=== PATIENT | female | born 1945 | race Caucasian/White ===

== ENCOUNTER 2022-07-16 13:00 | Emergency (ER) | payer MEDICARE, OTHER ==
[2022-07-16] MEDS ORDERED: LORazepam INJ 2 MG/ML (ATIVAN) VIAL IVP STA ×4 (13:08→17:02)
[2022-07-16] MEDS ORDERED: NS IV 1000 ML 1,000 ML IV STA ×2 (13:08→14:05)
[2022-07-16] MEDS ORDERED: HALOPERIDOL 5 MG/ML (HALDOL) VIAL IV STA (13:08)
[2022-07-16 13:21] LABS: BASOPHILS # (AUTO) 0.1 10^3/uL (0.0-0.1); BASOPHILS % (AUTO) 1 % (0-10); EOSINOPHILS # (AUTO) 0.2 10^3/uL (0.0-0.3); EOSINOPHILS % (AUTO) 2 % (0-10); HEMATOCRIT 39 % (35-52); HEMOGLOBIN 12.7 g/dL (11.5-16.0); LYMPHOCYTES # (AUTO) 2.9 10^3/uL (1.0-4.0); LYMPHOCYTES % (AUTO) 33 % (12-44); MEAN CORPUSCULAR HEMOGLOBIN 32 pg (25-34); MEAN CORPUSCULAR HGB CONC 33 g/dL (32-36); MEAN CORPUSCULAR VOLUME 100 fL (80-99); MEAN PLATELET VOLUME 9.3 fL (9.0-12.2); MONOCYTES # (AUTO) 0.6 10^3/uL (0.0-1.0); MONOCYTES % (AUTO) 6 % (0-12); NEUTROPHILS # (AUTO) 5.1 10^3/uL (1.8-7.8); NEUTROPHILS % (AUTO) 58 % (42-75); PLATELET COUNT 400 10^3/uL (130-400); WHITE BLOOD COUNT 8.8 10^3/uL (4.3-11.0)
[2022-07-16 13:29] LABS: BILIRUBIN,URINE NEGATIVE (NEGATIVE); CLARITY,URINE CLEAR; COLOR,URINE YELLOW; GLUCOSE, URINE (UA) NEGATIVE (NEGATIVE); KETONES,URINE NEGATIVE (NEGATIVE); LEUKOCYTE ESTERASE ,URINE NEGATIVE (NEGATIVE); NITRITE,URINE NEGATIVE (NEGATIVE); PH,URINE 5.5 (5-9); PROTEIN,URINE 1+ (NEGATIVE)
[2022-07-16 13:30] LABS: BACTERIA,URINE NEGATIVE /HPF
--- NOTE | 2022-07-16 13:40 | ED General ---
General Stated Complaint: AMS; SEIZURE-LIKE ACTIVITY; UNRESPONSIVE Source of Information: Patient, Spouse (S acting as an independent historian as the patient was agitated and confused and unable to answer questions coherently.) History of Present Illness Date Seen by Provider: Jul 16, 2022 Time Seen by Provider: 13:00 Initial Comments 77-year-old female presenting with EMS after having seizure-like activity witnessed by the . He states that they were watching television and he noticed that her breathing change and when he looked at her she was arching her back and rigid all over. He reports that lasted maybe up to a minute. She has had prior seizure activity approximately a year ago and they told told them at that time it was due to an infection. She had the infection treated but was not placed on any medicine for seizures. The reports that she does not take any chronic medications currently. 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 They most recently lived in [facility]. The states that they came back to [place] looking for some of her old classmates but were having difficulty finding ones that were still alive and in the area. He states that she did use marijuana but no other drugs. She does not routinely drink alcohol. He advised that she had been feeling fine prior to this episode this morning. Associated Systoms: No Cough, No Diaphoresis, No Fever/Chills, No Headaches, No Loss of Appetite, No Malaise, No Nausea/Vomiting; Seizure; No Shortness of Air, No Syncope, No Weakness Allergies and Home Medications Allergies Coded Allergies: No Known Drug Allergies (Unverified , 07/16/22) Patient Home Medication List Home Medication List Reviewed: Yes Review of Systems Review of Systems Constitutional: No chills, No fever EENTM: no symptoms reported Respiratory: no symptoms reported Cardiovascular: no symptoms reported Gastrointestinal: no symptoms reported Genitourinary: no symptoms reported Musculoskeletal: no symptoms reported Skin: no symptoms reported Psychiatric/Neurological: Seizure (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 oz. kg; BMI Method: General Appearance: Anxious, Other (Patient is anxious and agitated crying out repeatedly asking for someone to help her. She was flailing her arms and legs) Eyes: Bilateral Eye PERRL, Bilateral Eye EOMI HEENT: Pharynx Normal, Moist Mucous Membranes, Other (She has a chronic soft tissue swelling under the left mandible. Has been states that it has gotten bigger recently. It is not erythematous, warm, fluctuant, draining.) Neck: Full Range of Motion, Normal Inspection, Non Tender, Supple Respiratory: Chest Non Tender, Lungs Clear, Normal Breath Sounds Cardiovascular: Regular Rate, Rhythm, Normal Peripheral Pulses Gastrointestinal: Normal Bowel Sounds, No Pulsatile Mass, Non Tender, Soft Rectal: Deferred Extremity: Normal Capillary Refill, Normal Inspection, Normal Range of Motion, No Pedal Edema Neurologic/Psychiatric: Alert; No Oriented x3; Other (Patient is alert and moving all extremities. She repeatedly cries out asking for people to help her. At times she is screaming. Despite attempts at verbally redirecting her and reassuring her she continued to cry out and swinging her arms and legs) Skin: Normal Color, Warm/Dry Focused Exam Sepsis Stage: Ruled Out Reason for ruling out sepsis: No source Lactate Level 07/16/22 13:15: Lactic Acid Level 8.64*H 07/16/22 15:15: Lactic Acid Level 1.68 Time of Focused Exam: 15:00 Respiratory: Chest Non Tender, Lungs Clear, Normal Breath Sounds Cardiovascular: Regular Rate, Rhythm, No Murmur, Normal Peripheral Pulses Capillary Refill: Less Than 3 Seconds Peripheral Pulses: 2+ Dorsalis Pedis (R), 2+ Left Dors-Pedis (L), 2+ Radial Pulses (R), 2+ Radial Pulses (L) Skin: normal color, warm/dry Lactic Acid Level Laboratory Tests Test 07/16/22 13:15 07/16/22 15:15 Lactic Acid Level 8.64 MMOL/L (0.50-2.00) *H 1.68 MMOL/L (0.50-2.00) Within 3hrs of presentation: Admin fluids, Admin ABX, Blood cultures prior to ABX's, Focus exam, Lactate level Progress/Results/Core Measures Suspected Sepsis SIRS Temperature: Pulse: Respiratory Rate: Laboratory Tests 07/16/22 13:15: White Blood Count 8.8 Blood Pressure / Mean: 07/16/22 13:15: Lactic Acid Level 8.64*H 07/16/22 15:15: Lactic Acid Level 1.68 Laboratory Tests 07/16/22 13:15: Creatinine 0.74, Platelet Count 400, Total Bilirubin 0.3 Results/Orders Lab Results Laboratory Tests Test 07/16/22 13:08 07/16/22 13:15 07/16/22 14:55 07/16/22 15:15 Range/Units Urine Color YELLOW Urine Clarity CLEAR Urine pH 5.5 5-9 Urine Specific Taylor 1.025 H 1.016-1.022 Urine Protein 1+ H NEGATIVE Urine Glucose (UA) NEGATIVE NEGATIVE Urine Ketones NEGATIVE NEGATIVE Urine Nitrite NEGATIVE NEGATIVE Urine Bilirubin NEGATIVE NEGATIVE Urine Urobilinogen 0.2 < = 1.0 MG/DL Urine Leukocyte Esterase NEGATIVE NEGATIVE Urine RBC (Auto) NEGATIVE NEGATIVE Urine RBC NONE /HPF Urine WBC NONE /HPF Urine Squamous Epithelial Cells NONE /HPF Urine Crystals NONE /LPF Urine Bacteria NEGATIVE /HPF Urine Casts NONE /LPF Urine Mucus NEGATIVE /LPF Urine Culture Indicated NO Urine Opiates Screen NEGATIVE NEGATIVE Urine Oxycodone Screen NEGATIVE NEGATIVE Urine Methadone Screen NEGATIVE NEGATIVE Urine Propoxyphene Screen NEGATIVE NEGATIVE Urine Barbiturates Screen NEGATIVE NEGATIVE Ur Tricyclic Antidepressants Screen NEGATIVE NEGATIVE Urine Phencyclidine Screen NEGATIVE NEGATIVE Urine Amphetamines Screen NEGATIVE NEGATIVE Urine Methamphetamines Screen NEGATIVE NEGATIVE Urine Benzodiazepines Screen NEGATIVE NEGATIVE Urine Cocaine Screen NEGATIVE NEGATIVE Urine Cannabinoids Screen POSITIVE H NEGATIVE White Blood Count 8.8 4.3-11.0 10^3/uL Red Blood Count 3.92 3.80-5.11 10^6/uL Hemoglobin 12.7 11.5-16.0 g/dL Hematocrit 39 35-52 % Mean Corpuscular Volume 100 H 80-99 fL Mean Corpuscular Hemoglobin 32 25-34 pg Mean Corpuscular Hemoglobin Concent 33 32-36 g/dL Red Cell Distribution Width 13.1 10.0-14.5 % Platelet Count 400 130-400 10^3/uL Mean Platelet Volume 9.3 9.0-12.2 fL Immature Granulocyte % (Auto) 0 % Neutrophils (%) (Auto) 58 42-75 % Lymphocytes (%) (Auto) 33 12-44 % Monocytes (%) (Auto) 6 0-12 % Eosinophils (%) (Auto) 2 0-10 % Basophils (%) (Auto) 1 0-10 % Neutrophils # (Auto) 5.1 1.8-7.8 10^3/uL Lymphocytes # (Auto) 2.9 1.0-4.0 10^3/uL Monocytes # (Auto) 0.6 0.0-1.0 10^3/uL Eosinophils # (Auto) 0.2 0.0-0.3 10^3/uL Basophils # (Auto) 0.1 0.0-0.1 10^3/uL Immature Granulocyte # (Auto) 0.0 0.0-0.1 10^3/uL Sodium Level 140 135-145 MMOL/L Potassium Level 3.8 3.6-5.0 MMOL/L Chloride Level 104 98-107 MMOL/L Carbon Dioxide Level 17 L 21-32 MMOL/L Anion Gap 19 H 5-14 MMOL/L Blood Urea Nitrogen 5 L 7-18 MG/DL Creatinine 0.74 0.60-1.30 MG/DL Estimat Glomerular Filtration Rate 84 BUN/Creatinine Ratio 7 Glucose Level 203 H 70-105 MG/DL Lactic Acid Level 8.64 *H 1.68 0.50-2.00 MMOL/L Calcium Level 9.3 8.5-10.1 MG/DL Corrected Calcium 9.0 8.5-10.1 MG/DL Total Bilirubin 0.3 0.1-1.0 MG/DL Aspartate Amino Transf (AST/SGOT) 16 5-34 U/L Alanine Aminotransferase (ALT/SGPT) 9 0-55 U/L Alkaline Phosphatase 86 40-136 U/L Total Protein 7.5 6.4-8.2 GM/DL Albumin 4.4 3.2-4.5 GM/DL Salicylates Level 0.4 L 5.0-20.0 MG/DL Acetaminophen Level < 10 L 10-30 UG/ML Serum Alcohol < 10 <10 MG/DL Influenza Type A (RT-PCR) Not Detected Not Detecte Influenza Type B (RT-PCR) Not Detected Not Detecte SARS-CoV-2 RNA (RT-PCR) Not Detected Not Detecte My Orders Orders - MELANIA PERALES MD Ua Culture If Indicated (07/16/22 13:08) Cbc With Automated Diff (07/16/22 13:08) Comprehensive Metabolic Panel (07/16/22 13:08) Alcohol (07/16/22 13:08) Drug Screen Stat (Urine) (07/16/22 13:08) Acetaminophen (07/16/22 13:08) Salicylate (07/16/22 13:08) Ekg Tracing (07/16/22 13:08) Ed Iv/Invasive Line Start (07/16/22 13:08) Monitor-Rhythm Ecg Trace Only (07/16/22 13:08) Ct Head/Maxillofacial Wo (07/16/22 13:08) Straight Cath For Spec.-Adult (07/16/22 13:08) Ns Iv 1000 Ml (Sodium Chloride 0.9%) (07/16/22 13:08) Lorazepam Injection (Ativan Injection) (07/16/22 13:08) Haloperidol Injection (Haldol Injectio (07/16/22 13:08) Blood Culture (07/16/22 13:40) Lactic Acid Analyzer (07/16/22 13:40) Covid 19 Inhouse Test (07/16/22 13:40) Influenza A And B By Pcr (07/16/22 13:40) Isolation Central Supply Req (07/16/22 13:40) Lorazepam Injection (Ativan Injection) (07/16/22 13:40) Levetiracetam Injection (Keppra Injectio (07/16/22 13:40) Ceftriaxone 1 Gm Pre-Mix (Rocephin 1 Gm (07/16/22 14:05) Ns Iv 1000 Ml (Sodium Chloride 0.9%) (07/16/22 14:05) Lorazepam Injection (Ativan Injection) (07/16/22 14:15) Restraints: Behavioral/Violent .once (07/16/22 14:17) Renewal Ordered Needed (Q3h Ad Q3H (07/16/22 14:17) Lorazepam Injection (Ativan Injection) (07/16/22 17:02) Vital Signs/I&O 07/16/22 07/16/22 07/16/22 07/16/22 13:00 13:15 13:30 13:45 Temp 36.2 Pulse 104 Resp 18 20 20 21 B/P (MAP) 129/84 (99) Pulse Ox 95 O2 Delivery Room Air 07/16/22 07/16/22 07/16/22 07/16/22 14:00 14:15 14:30 14:45 Resp 20 19 20 18 07/16/22 07/16/22 07/16/22 07/16/22 15:00 15:15 15:30 15:45 Resp 20 22 20 22 Capillary Refill : Progress Note #1: Progress Note Agitation and non-cooperative with exam and treatment. Patient flailing her arms and legs and screaming out despite verbally redirecting her, having her try to calm her at her side and speaking to her. Chemical restraint with Ativan 2 mg and Haldol 5 mg IV helped some but was still screaming, agitated and uncooperative. Obtain peripheral IV access and send labs to look at complete blood count, comprehensive metabolic profile, alcohol, acetaminophen, salicylate, urinalysis, urine drug screen, CT head and maxillofacial to evaluate the brain and look for signs of intracranial hemorrhage or stroke or mass as well as looking for infection with her teeth or with the soft tissue swelling to the left mandible area. Straight cath urinalysis to obtain specimen. Administer normal saline 1 L IV fluid bolus for hydration. Keppra 500 mg IV for possible seizure activity. Patient continued to be agitated but was more calm after the Haldol 5 mg IV and Ativan 2 mg IV. An additional 1 mg of Ativan IV was administered to try and help with chemical restraint as she was still very agitated and moving all 4 extremities. This did make her a little more sedate and calm down so that she was not crying out but she was still not staying still. Harder to obtain CT scan of the head and maxillofacial an additional 2 mg of Ativan IV were ordered. Even with this patient had to have her head temporarily restrained to try and obtain the imaging. Progress Note #2: Time: 13:44 Progress Note Lab called with a lactic acid of 8.64. This is could be related to her seizure- like activity or possibly infection however I am not seeing any specific source of infection on exam or testing so far. Her complete blood count did not show an elevated white blood cell count. Her comprehensive metabolic profile did not have acute electrolyte abnormality to account for her symptoms she did have mild elevation of her glucose but unsure when she last ate or drink before having seizure activity and transport to the ED. She did not have signs of an infection on her urine it was slightly concentrated with a specific gravity 1.025. Her urine drug screen was positive for marijuana but no other illicit substances. Her levels for alcohol, salicylate, acetaminophen were all 0. Additional liter of normal saline IV fluid bolus was ordered along with Rocephin 1 g IV for her elevated lactic acid in case any of this was infection in her system. Will repeat draw her lactic acid after the fluids have infused. Attempted to obtain an electrocardiogram but patient was never able to lay still enough to get a tracing. Progress Note #3: Time: 15:07 Progress Note I reviewed the radiologist report of the CT scan of the head and maxillofacial area. They did not appreciate any acute fractures, intracranial hemorrhage, intracranial process. Patient continues to move her arms and legs on the bed. She is not crying out at this point. IV fluids and antibiotics were able to be infused. Progress Note #4: Time: 15:42 Progress Note Call placed to [facility] and spoke with NANCY Brandon. Patient information was provided to the transfer center contact the appropriate provider and will call back for provider to provider report. I have requested transfer to [facility] on the [facility] such as [facility] or [facility]. These would be the closest facilities to [place] that would have neurology and monitored care. As she may be having an unusual postictal phase and unsure about seizures will want to have neurology available. The repeat lactic acid was down to 1.68 with hydration. This makes it more likely that this was from seizure activity rather than infection as there is still no source for infection and she continues agitation despite multiple medications on board. 1609 Dr. Katarina Hope called from [facility] for the hospitalist service at [facility]. I reviewed the patient presentation and her history of prior seizure activity due to infection but not finding any infection today. CT scan of the head and face did not show any acute intracranial process. Her labs did not show acute abnormality on her complete blood count, comprehensive metabolic profile, urinalysis, urine drug screen, illicit drug screen to cause her to have seizure activity. With her still having continued altered mental status and agitation without a specific cause she was accepted for transfer to [facility] under Dr. Morris. 1700 additional dose of Ativan 2 mg IV was ordered as patient was rocking back and forth on the bed more. Awaiting EMS for transport to [facility] ter. 1815 EMS arrived to transport the patient to [facility] Diagnostic Imaging Diagonstic Imaging: CT Plain Films/CT/US/NM/MRI: head Comments NAME: OJ BOOKER REC#: [id number] PT STATUS: REG ER : 1945 PHYSICIAN: MELANIA PERALES MD ADMIT DATE: 07/16/22/ER FS Draft Date of Exam:07/16/22 CT HEAD/MAXILLOFACIAL WO PROCEDURE: CT head and maxillofacial without contrast. TECHNIQUE: Multiple contiguous axial images were obtained through the head and facial bones without the use of intravenous contrast. Auto Exposure Controls were utilized during the CT exam to meet ALARA standards for radiation dose reduction. INDICATION: Seizure with head and facial injuries. CT HEAD: Ventricles and sulci are appropriate for the patient's age. No sulcal effacement or midline shift is identified. No acute intra-axial or extra-axial hemorrhage is detected. Cisterns are patent. Visualized nasal sinuses are clear. IMPRESSION: No acute intracranial process is detected. CT FACE: Study is somewhat compromised by patient motion. Mandible is intact. Zygomatic arches are intact. The maxillary sinus matta, nasal bones and orbital matta appear to be intact. Paranasal sinuses are clear. IMPRESSION: No facial bone fracture is detected. Dictated on workstation # [id number] Dict: 07/16/22 1454 Trans: 07/16/22 1505 [facility] [id number] Interpreted by: ALLYN CARDENAS MD Electronically signed by: Reviewed: Reviewed by Me (I reviewed radiologist report at 1501) Critical Care Note Critical Care Total Time (minutes) 60 minutes Progress At least 60 minutes of critical care time was spent with the patient. Time excludes separately billable procedures. Time was spent trying to obtain history from patient and spouse and EMS, ordering tests and reviewing results, ordering interventions and reviewing response, discussions with consultants, discussion with the spouse since patient was incapacitated and not able to speak for herself, documentation in the chart. Patient was at risk of neurologic compromise and required immediate direct care to try and help stabilize the patient. Departure Impression Primary Impression: Elevated lactic acid level Additional Impressions: Agitation Altered mental status, unspecified Qualified Codes: R41.0 - Disorientation, unspecified Seizure-like activity Disposition: 02 XFER SHT-TRM HOSP Condition: Critical Transfer Transfer Reason: Exceeds level of care (Neurology and monitored care) Time Spoke to Accepting Phy: 16:09 Transfer Progress Notes 1609 Dr. Katarina Hope called from [facility] for the hospitalist service at [facility]. I reviewed the patient presentation and her history of prior seizure activity due to infection but not finding any infection today. CT scan of the head and face did not show any acute intracranial process. Her labs did not show acute abnormality on her complete blood count, comprehensive metabolic profile, urinalysis, urine drug screen, illicit drug screen to cause her to have seizure activity. With her still having continued altered mental status and agitation without a specific cause she was excepted for transfer to [facility] under Dr. Morris. Transfer Facility: [facility] Method of Transfer: EMS EMLANIA PERALES MD Jul 16, 2022 13:40
[2022-07-16 13:42] LABS: AMPHETAMINE SCREEN, URINE NEGATIVE (NEGATIVE); BARBITURATE SCREEN URINE NEGATIVE (NEGATIVE); BENZODIAZEPINES SCREEN URINE NEGATIVE (NEGATIVE); CANNABINOID SCREEN, URINE POSITIVE (NEGATIVE); COCAINE SCREEN URINE NEGATIVE (NEGATIVE); METHADONE STAT NEGATIVE (NEGATIVE); OPIATE SCREEN URINE NEGATIVE (NEGATIVE); OXYCODONE STAT NEGATIVE (NEGATIVE); PROPOXYPHENE STAT NEGATIVE (NEGATIVE); TRICYCLIC ANTIDEPRESSANTS SCRE NEGATIVE (NEGATIVE)
[2022-07-16 13:43] LABS: ACETAMINOPHEN < 10 UG/ML (10-30); ALANINE AMINOTRANSFERASE 9 U/L (0-55); ALBUMIN 4.4 GM/DL (3.2-4.5); ALKALINE PHOSPHATASE 86 U/L (40-136); BILIRUBIN,TOTAL 0.3 MG/DL (0.1-1.0); BUN/CREATININE RATIO 7; CALCIUM 9.3 MG/DL (8.5-10.1); CARBON DIOXIDE 17 MMOL/L (21-32); CHLORIDE 104 MMOL/L (98-107); CREATININE SERUM 0.74 MG/DL (0.60-1.30); GFR ESTIMATED 84; GLUCOSE 203 MG/DL (70-105); POTASSIUM 3.8 MMOL/L (3.6-5.0); SALICYLATE 0.4 MG/DL (5.0-20.0); SODIUM 140 MMOL/L (135-145); TOTAL PROTEIN 7.5 GM/DL (6.4-8.2)
[2022-07-16] MEDS ORDERED: cefTRIAXone 1 GM PRE-MIX 50 ML IV STA (14:05)
--- NOTE | 2022-07-16 15:05 | Diagnostic Imaging Report ---
PROCEDURE: CT head and maxillofacial without contrast. TECHNIQUE: Multiple contiguous axial images were obtained through the head and facial bones without the use of intravenous contrast. Auto Exposure Controls were utilized during the CT exam to meet ALARA standards for radiation dose reduction. INDICATION: Seizure with head and facial injuries. CT HEAD: Ventricles and sulci are appropriate for the patient's age. No sulcal effacement or midline shift is identified. No acute intra-axial or extra-axial hemorrhage is detected. Cisterns are patent. Visualized nasal sinuses are clear. IMPRESSION: No acute intracranial process is detected. CT FACE: Study is somewhat compromised by patient motion. Mandible is intact. Zygomatic arches are intact. The maxillary sinus matta, nasal bones and orbital matta appear to be intact. Paranasal sinuses are clear. IMPRESSION: No facial bone fracture is detected. Dictated by: Dictated on workstation # [id number]
[2022-07-16 18:26] VITALS: BP 116/78
== END 2022-07-16 18:26 | disposition short-term general hospital (02) ==
LOC: ER FS 13:03
DX: R56.9 Unspecified convulsions (principal); R41.82 Altered mental status, unspecified; R45.1 Restlessness and agitation; R74.02 Elevation of levels of lactic acid dehydrogenase [LDH]; Z20.822 Contact with and (suspected) exposure to COVID-19; Z28.310 Unvaccinated for COVID-19
CPT/HCPCS: 36415; 51701; 70450; 70486; 80053; 80306; 81000; 83605; 85025; 87040; 87636; 93041; 99284; G0480 ×3; 80320; 80329